=== PATIENT | female | born 1940 | race Caucasian/White ===

== ENCOUNTER 2017-09-29 08:31 | Day surgery (SDC) | payer MEDICARE ==
[~2017-09-29 08:31] MED LIST: Ak-Dilate OPHTHALMIC*** 0.71 ML, Cyclogyl 1% OPHTH SOL 5 ML 0.71 ML, GATIFLOXACIN 0.5% ... OP ONE; Lactated Ringers 1,000 ML IV SCH; TETRACAINE 0.5% STERI-UNIT SOL OP ONE
[2017-09-29] MEDS ORDERED: DIPRIVAN 200 MG/20 ML IV ONE (08:32)
[2017-09-29] MEDS ORDERED: Lactated Ringers 1,000 ML IV ONE (08:56)
[2017-09-29] MEDS ORDERED: Zofran 4 MG/2 ML VIAL IV PRN (09:00)
[2017-09-29] MEDS ORDERED: ACETAZOLAMIDE 250 MG TABLET PO ONE (09:00)
[2017-09-29 12:01] VITALS: O2SAT 99
[2017-09-29 12:39] VITALS: BP 129/60; PULSE 65
[2017-09-29] MEDS ORDERED: BSS 500 ML, Fortaz/Tazicef 1 GM** 0.2 G IO ONE ×2 (13:45)
[2017-09-29] MEDS ORDERED: BETADINE 5% OPHTHALMIC 30 ML OP ONE (13:45)
[2017-09-29] MEDS ORDERED: Epinephrine Preservative Free 1 MG/ML INTRAOP ONE (13:45)
[2017-09-29] MEDS ORDERED: LIDOCAINE HCL 1% AMPUL 5 ML IJ ONE (13:45)
--- NOTE | 2017-09-29 15:01 | OP ---
DATE/TIME OF OPERATION: 09/29/2017 1114 TIME DICTATED: 1247 PREOPERATIVE DIAGNOSIS: Senile cataract of left eye. POSTOPERATIVE DIAGNOSIS: Senile cataract of left eye. SURGEON: Leslie Suggs MD ADMINISTRATIVE ACCOUNTANT: None. OPERATION: Cataract extraction of left eye with an intraocular lens implant. STANDARD __X___ COMPLEX ANESTHESIA: MAC. ___X___ Monitored anesthesia care in combination with topical and intra-cameral anesthesia (because of the established specific risk of reflux, arrhythmias, or an anxiety attack associated with ocular manipulation as well as difficulty of the application trainer to manage such potentially catastrophic events while simultaneously attempting to complete the surgical procedure, it was deemed necessary for the patient's safety to have an anesthesiologist or a nurse machine stoppage frequency checker present during the procedure whenever possible. The anesthesiologist or the nurse machine stoppage frequency checker was utilized to monitor and regulate the intravenous sedation of the patient, so the patient was cooperative, relaxed, and comfortable). Topical anesthesia using Tetracaine eye drops together with intra cameral anesthesia using Lidocaine 1% MPF. The nurse was utilized to monitor the patient. ANESTHESIA PROVIDER: Stewart Tracy CRNA. COMPLICATIONS: None. BLOOD LOSS: None. INDICATIONS: The patient is undergoing cataract surgery in the hopes of eliminating the visual complaints and difficulty. PROCEDURE: After arriving at the facility's outpatient surgery area, an IV was started; the patient was given 5 mg of p.o. Versed. (If an anesthesia provider was not monitoring the patient) The patient was then given topical anesthetic Tetracaine eye drops. A cotton pellet was soaked into a solution of a combination of Zymaxid 0.5%, James-Synephrine 2.5% and Ocufen (other drops might have been substituted referenced in the patient's record). The pellet was inserted by the RN into the lower conjunctival cul-de-sac with a sterile forceps and left for 20 minutes. The pellet was then removed by the RN with a sterile forceps before taking the patient to the operating room. The preoperative area nurse identified the patient and marked the correct eye to be operated on. I identified the correct eye to be operated on and marked it appropriately in the outpatient surgery area. The patient was then taken into the operating room. Tetracaine eye drops were installed again in the correct eye. The eyelids and the lashes and the lid margins were scrubbed with Betadine solution. One drop of the diluted Betadine solution was placed in the conjunctival cul-de-sac for 45 seconds and then was irrigated. A drop of Tetracaine Gel was placed in the conjunctival cul-de-sac. The patient's forehead was taped to secure it during the procedure. The patient was monitored. The patient was then draped in the usual way for this procedure. An eye speculum was used to separate the eyelids. The eye was then fixated and a temporal 2.5 mm incision was made in the clear cornea temporally at the limbus. Through the incision, 0.25 cc of 1% non-preserved lidocaine was injected into the anterior chamber for intracameral anesthesia. The anterior chamber was then filled with viscoelastic. The pupil was small. I felt that it would be safer to mechanically dilate the pupil. A Malyugin ring was used at this point which dilated the pupil. That was removed at the end of the procedure prior to aspiration of the viscoelastic from the anterior chamber and posterior to the intraocular lens implant. The cataract had a great amount of cortical changes. That rendered seeing the anterior capsule difficult for a safe performance of an anterior capsulotomy. I injected an air bubble into the anterior chamber. I then injected 1 ML of vision blue solution into the anterior chamber. The vision blue solution was irrigated from the anterior chamber after 30 seconds. The anterior capsule was stained which facilitated performing the anterior capsulotomy safely. After that was completed, a cystotome was introduced into the anterior chamber and a round anterior capsulotomy was performed. The capsule was removed by a forceps. Hydrodissection was next carried utilizing a 25-gauge cannula and balanced salt solution to delineate the cortical material from the capsule and the nucleus from the cortical material. The nucleus was rotated freely into the capsular bag with no difficulty. The phaco tip of the [employer] Phacoemulsifier was introduced into the anterior chamber and two grooves were made into the nucleus 90 degrees apart. Using two spatulas resulted into the nucleus being fractured into four quadrants. The phaco tip was then used to remove each quadrant of the nucleus. Viscoelastic was used during this process to protect the corneal endothelium. Once the entire nucleus was removed, the phaco tip then was removed and the irrigation tip was introduced into the eye and the cortex was removed. The posterior capsule was polished. It was noticed that there was a tear into the posterior capsule with few vitreous strands into the pupil plan. An anterior vitrectomy was performed. A 23.00 diopter, SN60WF, posterior chamber lens implant, was inspected and found to be grossly normal. The implant was inserted into the implant injector cartridge; Viscoelastic again was introduced into the anterior chamber, which filled the capsular bag. The implant injector's cartridge tip was placed at the limbal wound and the posterior chamber implant was released into the capsular bag and rotated appropriately. The implant was found to be into the capsular bag and it was centered. ___X___ 0.2 ml of Tri-Moxi was introduced via 27 gauge cannula into the vitreous cavity through the ciliary processes. Viscoelastic was aspirated from the anterior chamber and posterior to the intraocular lens implant from the capsular bag using the irrigating tip. The anterior chamber was irrigated and filled with 5 cc antibiotic solution (500 cc of BSS plus 2 ml of Fortaz 100 mg/ml) ( if patient was not allergic to the medication). The lips of the corneal incision were hydrated using BSS solution. The anterior chamber was checked and found to be water tight. One drop each of antibiotic, steroid and NSAID drops (refer to chart for drops used) were placed in the conjunctival cul-de-sac of the operated eye. Patient tolerated the procedure quite well and left the operating room in satisfactory condition. DISCHARGE SUMMARY: The patient was released in stable condition. The patient and those with the patient were given an instruction sheet as of how to care for the eye after surgery as well as counseling on any abnormal laboratory studies by the postoperative RN. The patient was also given an appointment card for follow-up in the office and is to call immediately for any difficulties including but not limited to pain in the eye, decreased vision, discharge from the eye, headache and or fever. DISCHARGE DIAGNOSIS: Pseudophakia of left eye.
== END 2017-09-29 12:37 | disposition home or self-care (01) ==
LOC: SDC 08:31
PROVIDERS: ATTEND Ophthalmology
PROC: 08RK3JZ Replacement of Left Lens with Synthetic Substitute, Percutaneous Approach (ICD-10-PCS; principal; 2017-09-29)
DX: H25.9 Unspecified age-related cataract (principal); I49.9 Cardiac arrhythmia, unspecified; M19.90 Unspecified osteoarthritis, unspecified site; K21.9 Gastro-esophageal reflux disease without esophagitis; J32.9 Chronic sinusitis, unspecified
CPT/HCPCS: 66984; C1780; 99100; J0171; J2704; A9270-GY

== ENCOUNTER 2017-10-27 10:04 | Day surgery (SDC) | payer MEDICARE ==
[~2017-10-27 10:04] MED LIST changes: +ACETAZOLAMIDE 250 MG TABLET PO ONE; +BETADINE 5% OPHTHALMIC 30 ML OP ONE; +BSS 500 ML, Fortaz/Tazicef 1 GM** 0.2 G IO ONE; +Epinephrine Preservative Free 1 MG/ML INTRAOP ONE; +LIDOCAINE HCL 1% AMPUL 5 ML IJ ONE; +Lactated Ringers 1,000 ML IV ONE; +Zofran 4 MG/2 ML VIAL IV PRN
[2017-10-27] MEDS ORDERED: DIPRIVAN 200 MG/20 ML IV ONE (10:05)
[2017-10-27 14:03] VITALS: BP 110/63; PULSE 57; O2SAT 97
--- NOTE | 2017-10-27 14:36 | OP ---
DATE/TIME OF OPERATION: 10/27/2017 1246 TIME DICTATED: 1321 PREOPERATIVE DIAGNOSIS: Senile cataract of right eye. POSTOPERATIVE DIAGNOSIS: Senile cataract of right eye. SURGEON: Leslie Suggs MD CLOSET BUILDER: None. OPERATION: Cataract extraction of right eye with an intraocular lens implant. STANDARD __X___ COMPLEX ANESTHESIA: MAC. ___X___ Monitored anesthesia care in combination with topical and intra-cameral anesthesia (because of the established specific risk of reflux, arrhythmias, or an anxiety attack associated with ocular manipulation as well as difficulty of the burrer marker axle to manage such potentially catastrophic events while simultaneously attempting to complete the surgical procedure, it was deemed necessary for the patient's safety to have an anesthesiologist or a nurse earrings fabricator present during the procedure whenever possible. The anesthesiologist or the nurse earrings fabricator was utilized to monitor and regulate the intravenous sedation of the patient, so the patient was cooperative, relaxed, and comfortable). Topical anesthesia using Tetracaine eye drops together with intra cameral anesthesia using Lidocaine 1% MPF. The nurse was utilized to monitor the patient. ANESTHESIA PROVIDER: Akash Downing CRNA. COMPLICATIONS: None. BLOOD LOSS: None. INDICATIONS: The patient is undergoing cataract surgery in the hopes of eliminating the visual complaints and difficulty. PROCEDURE: After arriving at the facility's outpatient surgery area, an IV was started; the patient was given 5 mg of p.o. Versed. (If an anesthesia provider was not monitoring the patient) The patient was then given topical anesthetic Tetracaine eye drops. A cotton pellet was soaked into a solution of a combination of Zymaxid 0.5%, James-Synephrine 2.5% and Ocufen (other drops might have been substituted referenced in the patient's record). The pellet was inserted by the RN into the lower conjunctival cul-de-sac with a sterile forceps and left for 20 minutes. The pellet was then removed by the RN with a sterile forceps before taking the patient to the operating room. The preoperative area nurse identified the patient and marked the correct eye to be operated on. I identified the correct eye to be operated on and marked it appropriately in the outpatient surgery area. The patient was then taken into the operating room. Tetracaine eye drops were installed again in the correct eye. The eyelids and the lashes and the lid margins were scrubbed with Betadine solution. One drop of the diluted Betadine solution was placed in the conjunctival cul-de-sac for 45 seconds and then was irrigated. A drop of Tetracaine Gel was placed in the conjunctival cul-de-sac. The patient's forehead was taped to secure it during the procedure. The patient was monitored. The patient was then draped in the usual way for this procedure. An eye speculum was used to separate the eyelids. The eye was then fixated and a temporal 2.5 mm incision was made in the clear cornea temporally at the limbus. Through the incision, 0.25 cc of 1% non-preserved lidocaine was injected into the anterior chamber for intracameral anesthesia. The anterior chamber was then filled with viscoelastic. The pupil was small. I felt that it would be safer to mechanically dilate the pupil. A Malyugin ring was used at this point which dilated the pupil. That was removed at the end of the procedure prior to aspiration of the viscoelastic from the anterior chamber and posterior to the intraocular lens implant. The cataract had a great amount of cortical changes. That rendered seeing the anterior capsule difficult for a safe performance of an anterior capsulotomy. I injected an air bubble into the anterior chamber. I then injected 1 ML of vision blue solution into the anterior chamber. The vision blue solution was irrigated from the anterior chamber after 30 seconds. The anterior capsule was stained which facilitated performing the anterior capsulotomy safely. After that was completed, a cystotome was introduced into the anterior chamber and a round anterior capsulotomy was performed. The capsule was removed by a forceps. Hydrodissection was next carried utilizing a 25-gauge cannula and balanced salt solution to delineate the cortical material from the capsule and the nucleus from the cortical material. The nucleus was rotated freely into the capsular bag with no difficulty. The phaco tip of the [employer] Phacoemulsifier was introduced into the anterior chamber and two grooves were made into the nucleus 90 degrees apart. Using two spatulas resulted into the nucleus being fractured into four quadrants. The phaco tip was then used to remove each quadrant of the nucleus. Viscoelastic was used during this process to protect the corneal endothelium. Once the entire nucleus was removed, the phaco tip then was removed and the irrigation tip was introduced into the eye and the cortex was removed. The posterior capsule was polished. It was noticed that there was a tear into the posterior capsule with few vitreous strands into the pupil plan. An anterior vitrectomy was performed. A 23.00 diopter, SN60WF, posterior chamber lens implant, was inspected and found to be grossly normal. The implant was inserted into the implant injector cartridge; Viscoelastic again was introduced into the anterior chamber, which filled the capsular bag. The implant injector's cartridge tip was placed at the limbal wound and the posterior chamber implant was released into the capsular bag and rotated appropriately. The implant was found to be into the capsular bag and it was centered. __X__ 0.2 ml of Tri-Moxi was introduced via 27 gauge cannula into the vitreous cavity through the ciliary processes. Viscoelastic was aspirated from the anterior chamber and posterior to the intraocular lens implant from the capsular bag using the irrigating tip. The anterior chamber was irrigated and filled with 5 cc antibiotic solution (500 cc of BSS plus 2 ml of Fortaz 100 mg/ml) ( if patient was not allergic to the medication). The lips of the corneal incision were hydrated using BSS solution. The anterior chamber was checked and found to be water tight. One drop each of antibiotic, steroid and NSAID drops (refer to chart for drops used) were placed in the conjunctival cul-de-sac of the operated eye. Patient tolerated the procedure quite well and left the operating room in satisfactory condition. DISCHARGE SUMMARY: The patient was released in stable condition. The patient and those with the patient were given an instruction sheet as of how to care for the eye after surgery as well as counseling on any abnormal laboratory studies by the postoperative RN. The patient was also given an appointment card for follow-up in the office and is to call immediately for any difficulties including but not limited to pain in the eye, decreased vision, discharge from the eye, headache and or fever. DISCHARGE DIAGNOSIS: Pseudophakia of right eye.
== END 2017-10-27 14:17 | disposition home or self-care (01) ==
LOC: SDC 10:04
PROVIDERS: ATTEND Ophthalmology
PROC: 08RJ3JZ Replacement of Right Lens with Synthetic Substitute, Percutaneous Approach (ICD-10-PCS; principal; 2017-10-27)
PROC: 08B43ZZ Excision of Right Vitreous, Percutaneous Approach (ICD-10-PCS; 2017-10-27)
DX: H25.9 Unspecified age-related cataract (principal); I49.9 Cardiac arrhythmia, unspecified; M19.90 Unspecified osteoarthritis, unspecified site; K21.9 Gastro-esophageal reflux disease without esophagitis; Z79.899 Other long term (current) drug therapy
CPT/HCPCS: 66984; 67005; C1780; 99100; J0171; J2704; A9270-GY

== ENCOUNTER 2018-04-12 20:14 | Emergency (ER) | payer MEDICARE ==
[2018-04-12 20:26] VITALS: BP 122/83; PULSE 72; O2SAT 97
[2018-04-12] MEDS ORDERED: XYLOCAINE 1%/Epi 1:100000 MDV 20 ML IJ ONE (20:28)
[2018-04-12] MEDS ORDERED: XYLOCAINE 1%/Epi 1:100000 MDV 20 ML ONE (20:29)
--- NOTE | 2018-04-12 20:45 | ERPHSYRPT ---
- History of Present Illness Time Seen by Provider: 04/12/18 20:25 Source: patient Exam Limitations: no limitations Patient Subjective Stated Complaint: Pt arrives to ER with c/o bleeding from skin biopsy site under left breast along sternum. Biopsy earlier today and started bleeding 1 hour prior to arrival. Denies pain or any other sx. Triage Nursing Assessment: see above Physician History: Pt underwent surgical biopsy of a skin lesion on her anterior chest wall at 14: 00 PM in a [facility] office. The biopsy site started bleeding 1 hour ago, denies any injury or pain, or other complaints. Timing/Duration: today, hour(s) (1) Severity: mild Modifying Factors: Improves With: nothing Associated Symptoms: denies symptoms Allergies/Adverse Reactions: No Known Drug Allergies Allergy (Verified 04/12/18 20:27) Home Medications: Aspirin [Aspirin EC] 325 mg PO DAILY 05/23/13 [History] Calcium Carbonate [Calcium] 500 mg PO DAILY 05/23/13 [History] Fish Oil/Fat No.8/Hrb Comb.137 [Clio 3-6-9 1,200 mg Softgel] 1,250 mg PO BID [History] Metoprolol Succinate 25 mg Xl* [Toprol-Xl 25MG Tablets] 25 mg PO DAILY [History] Multivitamin/Iron/Folic Acid [Centrum Complete Multivit Tab] 1 each PO DAILY 05/25 [History] Flaxseed Oil [Flax Seed Oil] 1,000 mg PO DAILY 12/20/13 [History] Sodium Chloride [[place]asta] 1 spray IN .PRN 12/20/13 [History] Dronedarone Hydrochloride 400* [Multaq 400 MG] 200 mg PO BID 09/25/17 [ History] Ergocalciferol (Vitamin D2) [Vitamin D] 50,000 unit PO WEEKLY 09/25/17 [History] Ferrous Sulfate 325 mg [Feosol 325 mg] 325 mg PO 04/12/18 [History] Hx Tetanus, Diphtheria Vaccination/Date Given: Yes Hx Influenza Vaccination/Date Given: Yes Hx Pneumococcal Vaccination/Date Given: Yes - Review of Systems Constitutional: No Symptoms Skin: Other (blleding biopsy site on chest) All Other Systems: Reviewed and Negative - Past Medical History Pertinent Past Medical History: Yes Neurological History: No Pertinent History ENT History: Cataracts Cardiac History: Arrhythmia Respiratory History: No Pertinent History Endocrine Medical History: No Pertinent History Musculoskeletal History: Osteoarthritis GI Medical History: GERD, Other History: No Pertinent History Psycho-Social History: Anxiety Female Reproductive Disorders: No Pertinent History Other Medical History: Rapid heartbeat, 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 - Past Surgical History Past Surgical History: Yes Neuro Surgical History: No Pertinent History Cardiac: No Pertinent History Respiratory: No Pertinent History Gastrointestinal: No Pertinent History Genitourinary: No Pertinent History Musculoskeletal: Other Female Surgical History: No Pertinent History Other Surgical History: Rotator Cuff Right, Right foot cyst, T&A age 13, Laser surgery right eye, sinus surgery, skin biopsy - Social History Smoking Status: Never smoker Exposure to second hand smoke: No Drug Use: none Patient Lives Alone: No - Female History Hx Now: No - Nursing Vital Signs Nursing Vital Signs: Initial Vital Signs Temperature 98 F 04/12/18 20:20 Pulse Rate 72 04/12/18 20:20 Respiratory Rate 18 04/12/18 20:20 Blood Pressure 122/83 04/12/18 20:20 O2 Sat by Pulse Oximetry 97 04/12/18 20:20 Pain Scale Pain Intensity 0 - Physical Exam General Appearance: no apparent distress Ears, Nose, Throat Exam: normal ENT inspection Neck Exam: normal inspection Respiratory Exam: normal breath sounds, lungs clear, No chest tenderness Cardiovascular Exam: regular rate/rhythm, normal heart sounds, normal peripheral pulses Gastrointestinal/Abdomen Exam: soft, normal bowel sounds Back Exam: normal inspection Extremity Exam: normal inspection Neurologic Exam: alert, oriented x 3 Skin Exam: normal color, warm, dry, other (3x10 mm oval skin lesion ( shave off site) on the middle chest, slight bloody oozing, no arterial bleeding or hematoma, no erythema or purulent discharge,) Lymphatic Exam: No adenopathy SpO2 Interpretation: normal SpO2: 97 Oxygen Delivery: Room Air Procedures - Laceration/Wound Repair Anterior Chest Wound Location: chest Wound Length (cm): 1 Wound's Depth, Shape: superficial Wound Explored: clean Irrigated: No Hibiclens Prep: No Anesthesia: local, 1% lidocaine w/ Epi Volume Anesthetic (ccs): 1 Wound Repaired With: sutures Suture Size/Type: 4-0, prolene Number of Sutures: 1 Layer Closure?: No Sterile Dressing Applied?: Yes Splint Applied?: No Sling Applied?: No Progress: 04/12/18 20:53 1 X shaped suture placed to control superficial bleeding, bleeding stopped. Patient tolerated procedure well. - Course Nursing assessment & vital signs reviewed: Yes Ordered Tests: Active Orders 24 hr Category Date Time Status Wound Care STAT Care 04/12/18 20:28 Active Medication Summary Discontinued Medications Generic Name Dose Route Start Last Admin Trade Name Francy PRN Reason Stop Dose Admin Lidocaine/Epinephrine 5 ml 04/12/18 20:28 04/12/18 20:37 Xylocaine 1%/Epi [id number] Mdv 20 Ml IJ 04/12/18 20:29 5 ml STAT ONE Administration Lidocaine/Epinephrine Confirm 04/12/18 20:29 Xylocaine 1%/Epi [id number] Mdv 20 Ml Administered 04/12/18 20:30 Dose 20 ml .ROUTE .STK-MED ONE - Progress Progress: improved Progress Note: 04/12/18 20:54 Patient remained stable, afebrile. Counseled pt/family regarding: diagnosis, need for follow-up - Departure Time of Disposition: 20:59 Departure Disposition: Home Clinical Impression: Bleeding from open wound of chest wall Qualifiers: Encounter type: initial encounter Laterality: unspecified laterality Qualified Code(s): S21.109A - Unspecified open wound of unspecified front wall of thorax without penetration into thoracic cavity, initial encounter Condition: Stable Critical Care Time: No Referrals: TIFFANI VAZQUEZ MD [Primary Care Provider] - Instructions: Surgical Wound (DC) Additional Instructions: Keep cleansing wound daily as directed by [facility], removal of sutures after 4-5 days, return if severe pain, swelling, redness, bleeding, or fever> 102 F!
== END 2018-04-12 21:17 | disposition home or self-care (01) ==
LOC: ED 20:14
DX: S21.112A Laceration without foreign body of left front wall of thorax without penetration into thoracic cavity, initial encounter (principal); L76.21 Postprocedural hemorrhage of skin and subcutaneous tissue following a dermatologic procedure; Y84.8 Other medical procedures as the cause of abnormal reaction of the patient, or of later complication, without mention of misadventure at the time of the procedure; K21.9 Gastro-esophageal reflux disease without esophagitis; M19.90 Unspecified osteoarthritis, unspecified site; Z79.899 Other long term (current) drug therapy
CPT/HCPCS: 12001; 96372; 99283

== ENCOUNTER 2019-05-01 18:02 | Emergency (ER) | payer MEDICARE ==
[2019-05-01] MEDS ORDERED: PROTONIX 40 MG IV IV ONE ×2 (18:28→19:10)
[2019-05-01] MEDS ORDERED: Sodium Chloride 0.9% 1000 ML 1,000 ML IV STA (18:28)
--- NOTE | 2019-05-01 18:28 | ERPHSYRPT ---
<KRZYSZTOF THOMPSON - Last Filed: 05/02/19 02:58> - History of Present Illness Historian: patient Exam Limitations: no limitations Timing/Duration: today, hour(s) (5) Activities at Onset: other (occurred after eating) Quality: aching Abdominal Pain Onset Location: epigastric, other (middle of the abdomen) Pain Radiation: other (suprapubic area, only in the midline) Severity of Pain-Max: moderate Severity of Pain-Current: moderate Modifying Factors: Worsens With: antacids, rest, position Associated Symptoms: No back, No chest pain, No diaphoresis, No diarrhea, No fever/chills, No fatigue, No headache, No heartburn, No loss of appetite, No nausea, No neck pain, No rash, No shortness of breath, No syncope, No vomiting, No weakness Previous symptoms: no prior history, no recent treatment Hx Tetanus, Diphtheria Vaccination/Date Given: Yes Hx Influenza Vaccination/Date Given: Yes Hx Pneumococcal Vaccination/Date Given: Yes <SUE FERNÁNDEZ - Last Filed: 05/02/19 07:23> - History of Present Illness Time Seen by Provider: 05/01/19 18:20 Physician History: Patient has had pain in middle of her abdomen from lower to substernal area for the past 5 hours after eating pizza, salad and a pretzel. (SUE FERNÁNDEZ) Allergies/Adverse Reactions: No Known Drug Allergies Allergy (Verified 04/12/18 20:27) Home Medications: Aspirin [Aspirin EC] 325 mg PO DAILY 05/23/13 [History] Calcium Carbonate [Calcium] 500 mg PO DAILY 05/23/13 [History] Fish Oil/Fat No.8/Hrb Comb.137 [[place] 3-6-9 1,200 mg Softgel] 1,250 mg PO BID [History] Metoprolol Succinate 25 mg Xl* [Toprol-Xl 25MG Tablets] 25 mg PO DAILY [History] Multivitamin/Iron/Folic Acid [Centrum Complete Multivit Tab] 1 each PO DAILY 05/25 [History] Flaxseed Oil [Flax Seed Oil] 1,000 mg PO DAILY 12/20/13 [History] Sodium Chloride [Green Level] 1 spray IN .PRN 12/20/13 [History] Dronedarone Hydrochloride 400* [Multaq 400 MG] 200 mg PO BID 09/25/17 [ History] Ergocalciferol (Vitamin D2) [Vitamin D] 50,000 unit PO WEEKLY 09/25/17 [History] Ferrous Sulfate 325 mg [Feosol 325 mg] 325 mg PO 04/12/18 [History] - Review of Systems Constitutional: No Fever, No Chills, No Fatigue Eyes: No Eye Pain, No Vision Changes Ears, Nose, & Throat: No Mouth Pain, No Mouth Swelling, No Throat Swelling, No Painful Swallowing Respiratory: No Cough, No Dyspnea, No Dyspnea on Exertion ([place]) Cardiac: No Chest Pain, No Edema, No Palpitations, No Syncope Abdominal/Gastrointestinal: Abdominal Pain, No Nausea, No Vomiting, No Hematemesis, No Hematochezia, No Melena, No Dysphagia Genitourinary Symptoms: No Dysuria, No Frequency, No Hematuria, No Flank Pain Musculoskeletal: No Back Pain, No Neck Pain Skin: No Pruritis, No Rash Neurological: No Dizziness, No Focal Weakness, No Lethargy, No Paralysis, No Parasthesia, No Tremors Psychological: No Anxiety, No Emotional Lability Endocrine: No Polydipsia, No Excessive Sweating Hematologic/Lymphatic: No Easy Bleeding, No Easy Bruising All Other Systems: Reviewed and Negative <SUE FERNÁNDEZ - Last Filed: 05/02/19 07:23> - Past Medical History Pertinent Past Medical History: Yes Neurological History: No Pertinent History ENT History: Cataracts Cardiac History: Arrhythmia Respiratory History: No Pertinent History Endocrine Medical History: No Pertinent History Musculoskeletal History: Osteoarthritis GI Medical History: GERD, Other History: No Pertinent History Psycho-Social History: Anxiety Female Reproductive Disorders: No Pertinent History Other Medical History: Rapid heartbeat, 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 - Past Surgical History Past Surgical History: Yes Neuro Surgical History: No Pertinent History Cardiac: No Pertinent History Respiratory: No Pertinent History Gastrointestinal: No Pertinent History Genitourinary: No Pertinent History Musculoskeletal: Other Female Surgical History: No Pertinent History Other Surgical History: Rotator Cuff Right, Right foot cyst, T&A age 13, Laser surgery right eye, sinus surgery, skin biopsy - Social History Smoking Status: Never smoker Exposure to second hand smoke: No Drug Use: none Patient Lives Alone: No <SUE FERNÁNDEZ - Last Filed: 05/02/19 07:23> - Physical Exam General Appearance: no apparent distress Eye Exam: PERRL/EOMI, eyes nml inspection, No scleral icterus Ears, Nose, Throat Exam: pharynx normal, moist mucous membranes, No dry mucous membranes, No pharyngeal erythema Neck Exam: normal inspection, non-tender, supple, full range of motion, No meningismus, No Brudzinski Respiratory Exam: normal breath sounds, lungs clear, airway intact, No respiratory distress, No diminished breath sounds, No accessory muscle use, No crackles/rales, No rhonchi, No wheezing Cardiovascular Exam: regular rate/rhythm, normal heart sounds, normal peripheral pulses, capillary refill <2 sec Gastrointestinal/Abdomen Exam: soft, normal bowel sounds, No tenderness, No distention, No mass, No pulsatile mass, No rebound Back Exam: normal inspection, No CVA tenderness, No vertebral tenderness Extremity Exam: normal inspection, normal range of motion, pelvis stable, No deformities, No sid's sign, No inflammation, No pedal edema Neurologic Exam: alert, oriented x 3, cooperative, medical illustrator II-XII nml as tested, normal mood/affect, No sensation nml, No motor deficits, No uncooperative Skin Exam: normal color, warm, dry, rash, No petechiae, No cyanosis SpO2 Interpretation: normal O2 Delivery: Room Air <SUE FERNÁNDEZ - Last Filed: 05/02/19 07:23> - Nursing Vital Signs Nursing Vital Signs: Initial Vital Signs Temperature 98 F 05/01/19 18:20 Pulse Rate 63 05/01/19 18:20 Respiratory Rate 20 05/01/19 18:20 Blood Pressure 156/72 05/01/19 18:20 O2 Sat by Pulse Oximetry 98 05/01/19 18:20 Pain Scale Pain Intensity 0 <KRZYSZTOF THOMPSON - Last Filed: 05/02/19 02:58> - Course EKG Interpreted by Me: RATE (62), Sinus Rhythm, Left Opal Deviation, NORMAL INTERVALS, NORMAL ST-T, Other (Incomplete RBBB; no previous EKG for comparison) <SUE FERNÁNDEZ - Last Filed: 05/02/19 07:23> Ordered Tests: Active Orders 24 hr Category Date Time Status EKG-ER Only STAT Care 05/01/19 18:28 Active IV Insertion STAT Care 05/01/19 18:28 Active NPO (ED) STAT Care 05/01/19 18:28 Active ABDOMEN AND PELVIS W/0 CONTRAS [CT] Stat Exams 05/01/19 18:29 Taken AMYLASE Stat Lab 05/01/19 18:42 Completed CBC W DIFF Stat Lab 05/01/19 18:42 Completed CMP Stat Lab 05/01/19 18:42 Completed CULTURE,URINE Stat Lab 05/01/19 20:04 Received LIPASE Stat Lab 05/01/19 18:42 Completed Lactic Acid Stat Lab 05/01/19 19:40 Completed PROTIME WITH INR Stat Lab 05/01/19 18:42 Completed TROPONIN Q3H Lab 05/01/19 18:42 Completed UA W/RFX UR CULTURE Stat Lab 05/01/19 20:04 Completed Medication Summary Discontinued Medications Generic Name Dose Route Start Last Admin Trade Name Freq PRN Reason Stop Dose Admin Sodium Chloride 1,000 mls @ 999 mls/hr 05/01/19 18:28 05/01/19 19:16 Sodium Chloride 0.9% 1000 Ml IV 05/01/19 19:28 999 mls/hr .Q1H1M STA Administration Sodium Chloride Confirm 05/01/19 19:10 Sodium Chloride 0.9% 1000 Ml Administered 05/01/19 19:11 Dose 1,000 mls @ ud .ROUTE .STK-MED ONE Pantoprazole Sodium 40 mg 05/01/19 18:28 05/01/19 19:16 Protonix 40 Mg Iv IV 05/01/19 18:29 40 mg STAT ONE Administration Pantoprazole Sodium Confirm 05/01/19 19:10 Protonix 40 Mg Iv Administered 05/01/19 19:11 Dose 40 mg IV .STK-MED ONE Lab/Rad Data: Laboratory Result Diagrams 05/01/19 18:42 05/01/19 18:42 Laboratory Results 05/01/19 05/01/19 05/01/19 Range/Units 20:04 19:40 18:42 WBC (4.0-10.5) K/mm3 RBC (4.1-5.4) M/mm3 Hgb (12.0-16.0) gm/dl Hct (35-47) % MCV (78-100) fl MCH (26-32) pg MCHC (32-36) g/dl RDW (11.5-14.0) % Plt Count (150-450) K/mm3 MPV (6-9.5) fl Gran % (36.0-66.0) % Eos # (Auto) (0-0.5) Absolute Lymphs (auto) (1.0-4.6) Absolute Monos (auto) (0.0-1.3) Lymphocytes % (24.0-44.0) % Monocytes % (0.0-12.0) % Eosinophils % (0.00-5.0) % Basophils % (0.0-0.4) % Absolute Granulocytes (1.4-6.9) Basophils # (0-0.4) PT (9.95-12.35) SECONDS INR (0.8-3.0) Sodium (137-145) mmol/L Potassium (3.5-5.1) mmol/L Chloride (98-107) mmol/L Carbon Dioxide (22-30) mmol/L Anion Gap (5-15) MEQ/L BUN (7-17) mg/dL Creatinine (0.52-1.04) mg/dL Estimated GFR ML/MIN Glucose (74-106) mg/dL Lactic Acid 0.9 (0.4-2.0) Calcium (8.4-10.2) mg/dL Total Bilirubin (0.2-1.3) mg/dL AST (14-36) U/L ALT (0-35) U/L Alkaline Phosphatase (38-126) U/L Troponin I < 0.012 (0.000-0.034) ng/mL Serum Total Protein (6.3-8.2) g/dL Albumin (3.5-5.0) g/dL Amylase (30-110) U/L Lipase (23-300) U/L Urine Color COLORLESS (YELLOW) Urine Appearance CLEAR (CLEAR) Urine pH 7.0 (5-6) Ur Specific [place] 1.004 (1.005-1.025) Urine Protein NEGATIVE (Negative) Urine Ketones NEGATIVE (NEGATIVE) Urine Blood SMALL (0-5) [place]/ul Urine Nitrite NEGATIVE (NEGATIVE) Urine Bilirubin NEGATIVE (NEGATIVE) Urine Urobilinogen NEGATIVE (0-1) mg/dL Ur Leukocyte Esterase TRACE (NEGATIVE) Urine WBC (Auto) 3-5 (0-5) /HPF Urine RBC (Auto) NONE (0-2) /HPF U Epithel Cells (Auto) NONE (FEW) /HPF Urine Bacteria (Auto) NONE SEEN (NEGATIVE) /HPF Urine Mucus (Auto) SLIGHT (NEGATIVE) /HPF Urine Culture Reflexed YES (NO) Urine Glucose NEGATIVE (NEGATIVE) mg/dL 05/01/19 05/01/19 05/01/19 Range/Units 18:42 18:42 18:42 WBC 4.0 (4.0-10.5) K/mm3 RBC 3.92 L (4.1-5.4) M/mm3 Hgb 12.5 (12.0-16.0) gm/dl Hct 38.7 (35-47) % MCV 98.7 (78-100) fl MCH 31.8 (26-32) pg MCHC 32.3 (32-36) g/dl RDW 12.7 (11.5-14.0) % Plt Count 221 (150-450) K/mm3 MPV 9.9 H (6-9.5) fl Gran % 49.6 (36.0-66.0) % Eos # (Auto) 0.10 (0-0.5) Absolute Lymphs (auto) 1.38 (1.0-4.6) Absolute Monos (auto) 0.50 (0.0-1.3) Lymphocytes % 34.8 (24.0-44.0) % Monocytes % 12.6 H (0.0-12.0) % Eosinophils % 2.5 (0.00-5.0) % Basophils % 0.5 (0.0-0.4) % Absolute Granulocytes 1.96 (1.4-6.9) Basophils # 0.02 (0-0.4) PT 11.8 (9.95-12.35) SECONDS INR 1.04 (0.8-3.0) Sodium 140 (137-145) mmol/L Potassium 3.9 (3.5-5.1) mmol/L Chloride 104 (98-107) mmol/L Carbon Dioxide 28 (22-30) mmol/L Anion Gap 11.9 (5-15) MEQ/L BUN 29 H (7-17) mg/dL Creatinine 0.49 L (0.52-1.04) mg/dL Estimated GFR > 60.0 ML/MIN Glucose 91 (74-106) mg/dL Lactic Acid (0.4-2.0) Calcium 9.2 (8.4-10.2) mg/dL Total Bilirubin 0.20 (0.2-1.3) mg/dL AST 23 (14-36) U/L ALT 15 (0-35) U/L Alkaline Phosphatase 82 (38-126) U/L Troponin I (0.000-0.034) ng/mL Serum Total Protein 6.7 (6.3-8.2) g/dL Albumin 3.8 (3.5-5.0) g/dL Amylase 70 (30-110) U/L Lipase 99 (23-300) U/L Urine Color (YELLOW) Urine Appearance (CLEAR) Urine pH (5-6) Ur Specific [place] (1.005-1.025) Urine Protein (Negative) Urine Ketones (NEGATIVE) Urine Blood (0-5) [place]/ul Urine Nitrite (NEGATIVE) Urine Bilirubin (NEGATIVE) Urine Urobilinogen (0-1) mg/dL Ur Leukocyte Esterase (NEGATIVE) Urine WBC (Auto) (0-5) /HPF Urine RBC (Auto) (0-2) /HPF U Epithel Cells (Auto) (FEW) /HPF Urine Bacteria (Auto) (NEGATIVE) /HPF Urine Mucus (Auto) (NEGATIVE) /HPF Urine Culture Reflexed (NO) Urine Glucose (NEGATIVE) mg/dL - Progress Progress: improved, re-examined <KRZYSZTOF THOMPSON - Last Filed: 05/02/19 02:58> <SUE FERNÁNDEZ - Last Filed: 05/02/19 07:23> - Progress Progress Note: Patient feels better - no pain - discusssed findings with patient including CT abdomen/pelvis is negative for acute changes. Will wait for uninalysis and plan to DC; patient understands and voices satisfaction. 05/01/19 19:48 05/01/19 20:53 UA returned - 3 to 5 WBC/0 bacteria; discussed with patient. She will call Primary Care and will follow up with another doctor who checks her liver because of medicaion that she is on. (KRZYSZTOF THOMPSON) 05/01/19 19:16 Patient was discussed with Dr Thompson, oncoming ED attending and the care was transferred to Dr. Thompson. Dr Thompson will determine final disposition of the condition after evaluation of the labs, imaging studies, and reevaluation the patient. (SUE FERNÁNDEZ) - Departure Departure Disposition: Home Critical Care Time: Yes Critical Care Time(excluding separately billable procedures): Critical 30-74 mins (review of clinical picture, labs, CT abdomen and pelvis and decision to discharge) <KRZYSZTOF THOMPSON - Last Filed: 05/02/19 02:58> - Departure Departure Disposition: Home <SUE FERNÁNDEZ - Last Filed: 05/02/19 07:23> - Departure Clinical Impression: Abdominal pain in female patient, Elevated blood pressure reading without diagnosis of hypertension Condition: Good Referrals: TIFFANI VAZQUEZ MD [Primary Care Provider] - Instructions: Acid Reflux (Gastroesophageal Reflux Disease), Adult (DC), Acute Abdomen (Belly Pain) Additional Instructions: Call Dr Murillo tomorrow and let him know of the ER visit and CT scan; let them know how you are doing. Resume usual medications; return to ER if worsening. Follow up with medical providers as have been planned previously.
[2019-05-01 18:46] LABS: Absolute Neutrophil Ct (ANC) 1.96 (1.4-6.9); BASOPHIL % 0.5 % (0.0-0.4); Basophil (Absolute #) 0.02 (0-0.4); Eosinophil % 2.5 % (0.00-5.0); Hematocrit 38.7 % (35-47); Hemoglobin 12.5 gm/dl (12.0-16.0); Lymphocyte (Absolute #) 1.38 (1.0-4.6); Lymphocytes % 34.8 % (24.0-44.0); Mean Cell Volume 98.7 fl (78-100); Mean Corpuscular Hgb Concent. 32.3 g/dl (32-36); Mean Platelet Volume 9.9 fl (6-9.5); Monocytes % 12.6 % (0.0-12.0); Neutrophil % 49.6 % (36.0-66.0); Platelet Count 221 K/mm3 (150-450); Red Blood Count 3.92 M/mm3 (4.1-5.4); Red Cell Distribution Width 12.7 % (11.5-14.0)
[2019-05-01 18:50] LABS: Mean Corpuscular Hemoglobin 31.8 pg (26-32)
[2019-05-01 18:52] LABS: INR 1.04 (0.8-3.0); PROTIME 11.8 SECONDS (9.95-12.35)
[2019-05-01 18:57] LABS: ALBUMIN 3.8 g/dL (3.5-5.0); ALKALINE PHOSPHATASE 82 U/L (38-126); AMYLASE 70 U/L (30-110); ANION GAP 11.9 MEQ/L (5-15); BLOOD UREA NITROGEN 29 mg/dL (7-17); CHLORIDE 104 mmol/L (98-107); Calcium 9.2 mg/dL (8.4-10.2); Carbon Dioxide 28 mmol/L (22-30); Creatinine 1 0.49 mg/dL (0.52-1.04); Glucose 91 mg/dL (74-106); LIPASE 99 U/L (23-300); Potassium 3.9 mmol/L (3.5-5.1); SGOT/AST 23 U/L (14-36); SGPT/ALT 15 U/L (0-35); SODIUM 140 mmol/L (137-145); Total Protein 6.7 g/dL (6.3-8.2)
[2019-05-01] MEDS ORDERED: Sodium Chloride 0.9% 1000 ML 1,000 ML ONE (19:10)
[2019-05-01 20:10] LABS: Appearance CLEAR (CLEAR); Bilirubin NEGATIVE (NEGATIVE); Blood SMALL Ery/ul (0-5); Glucose NEGATIVE (NEGATIVE); Ketones NEGATIVE (NEGATIVE); Leukocyte Esterase TRACE (NEGATIVE); Mucus SLIGHT /HPF (NEGATIVE); Nitrite NEGATIVE (NEGATIVE); Protein,Urine Dip NEGATIVE (Negative); Specific Gravity 1.004 (1.005-1.025); Urobilinogen NEGATIVE mg/dL (0-1)
[2019-05-01 20:49] LABS: Bacteria NONE SEEN /HPF (NEGATIVE)
[2019-05-01 21:29] VITALS: BP 133/50; PULSE 70; O2SAT 92
--- NOTE | 2019-05-02 08:53 | XRAY ---
Indication: Midabdomen pain. Multiple contiguous axial images obtained through the abdomen and pelvis without contrast as ordered. Comparison: None Lung bases are clear. Heart is not enlarged. Moderate size hiatal hernia with partial intrathoracic stomach. Noncontrasted stomach and bowel loops appear nonobstructed. Normal appendix. Moderate diffuse scattered colonic fecal debris throughout. No free fluid/air. Scattered sigmoid diverticulosis. A few hepatic cysts, largest inferior right lobe measuring 1.9 cm. Bilateral renal parapelvic cysts. A few nonobstructing bilateral renal micro-calculi. Calcified splenic granulomas. Remaining liver, gallbladder, pancreas, spleen, adrenal glands, kidneys, ureters, bladder, and uterus appear unremarkable for noncontrast exam. Mild scattered aortoiliac calcifications without AAA. Osseous structures intact with mild/moderate degenerative changes throughout the thoracolumbar spine. Impression: 1. Diffuse fecal stasis without obstruction and sigmoid diverticulosis. 2. Incidental hiatal hernia with partial intrathoracic stomach, hepatic/renal cysts, and nonobstructing bilateral renal micro-calculi. Comment: Preliminary interpretation was made by [facility]. No discrepancy. CTDI 9.55
== END 2019-05-01 21:15 | disposition home or self-care (01) ==
LOC: ED 18:02
DX: R10.9 Unspecified abdominal pain (principal); R03.0 Elevated blood-pressure reading, without diagnosis of hypertension
CPT/HCPCS: 36000; 36415; 74176; 80053; 81001; 82150; 83605; 83690; 84484; 85025; 85610; 87086; 93005; 96374; 99284; 99291